=== PATIENT | female | born 1995 | race Caucasian/White ===

== ENCOUNTER 2020-10-16 07:48 | Outpatient (CLI) | payer OTHER, SELFPAY ==
--- NOTE | 2020-10-16 07:58 | US_ITS ---
WS: [id number] ULTRASOUND LEFT BREAST HISTORY: LT BREAST PAIN COMPARISON: None available. TECHNIQUE: 2-D and Doppler. Ultrasound is performed of the inferior LEFT breast at the area of interest and concern. There is a n ormal appearance to the soft tissue no solid or cystic masses or distortion. US/US breast LT limited* [id number] IMPRESSION: BI-RADS: 1-Negative FOLLOW-UP: See Report No abnormalities noted in the LEFT breast in the area of concern. This area wou ld probably not be included well on the mammogram and due to age of the patient no mammogram will be performed today.
== END 2020-10-16 07:49 | disposition home or self-care (01) ==
LOC: RAD 07:54
PROVIDERS: PCP Nurse Practitioner Family; Visit Provider Nurse Practitioner Family
DX: N64.4 Mastodynia (principal)
CPT/HCPCS: 76642

== ENCOUNTER → 2022-08-02 08:34 | Outpatient (BNVA) | payer MEDICAID, SELFPAY | PROVIDERS: PCP Nurse Practitioner Family; Visit Provider Nurse Practitioner Family | DX: R10.2 Pelvic and perineal pain (principal) | CPT/HCPCS: 81000 ==

== ENCOUNTER → 2023-07-04 14:30 | Outpatient (BNVA) | payer MEDICAID, SELFPAY | PROVIDERS: PCP Nurse Practitioner Family; Visit Provider Nurse Practitioner Family | DX: R53.83 Other fatigue (principal); N92.1 Excessive and frequent menstruation with irregular cycle | CPT/HCPCS: 80053; 81000; 85025 ==